=== PATIENT | male | born 1975 | race Caucasian/White ===

== ENCOUNTER → 2017-06-16 09:47 | Outpatient (CLI) | payer OTHER, SELFPAY ==
[2017-06-16 11:15] LABS: Anion Gap 7 (5-15); BUN 18 mg/dL (7-18); BUN/Creat Ratio 15.4 RATIO (10-20); Calcium,Total 8.9 mg/dL (8.5-10.1); Chloride 103 mmol/L (98-107); Cholesterol 193 mg/dL (200); Creatinine, Serum 1.17 mg/dL (0.70-1.30); EST Glomerular Filtration Rate 73 mL/min (>60); Est Glom Filt Rate - Afr Amer 89 mL/min (>60); Glucose 93 mg/dL (74-106); High Density Lipoprotein 43 mg/dL; Magnesium 2.3 mg/dL (1.6-2.6); Potassium 3.7 mmol/L (3.5-5.1); Sodium Level 139 mmol/L (136-145); Thyroid Stim Hormone (TSH) 3.55 uIU/mL (0.358-3.74); Triglycerides 103 mg/dL; Very Low Density Lipoprotein 21 mg/dL (5-40)
== END ==
PROVIDERS: Family Provider Family Medicine; PCP Family Medicine; Visit Provider Family Medicine
DX: I49.1 Atrial premature depolarization (principal)
CPT/HCPCS: 36415; 80048; 80061; 83735; 84443

== ENCOUNTER → 2019-03-12 11:21 | Outpatient (CLI) | payer OTHER, SELFPAY ==
[2019-03-12 12:17] LABS: PSA,Total - Annual Screen 0.47 ng/mL (0.00-4.00); Thyroid Stim Hormone (TSH) 2.26 uIU/mL (0.358-3.74)
[2019-03-15 12:07] LABS: Testosterone, Free 9.66 ng/dL (5.00-21.00)
[2019-03-15 14:26] LABS: Testosterone, % Free 2.41 % (1.50-4.20); Testosterone, Total 401 ng/dL (264-916)
== END ==
PROVIDERS: Family Provider Family Medicine; PCP Family Medicine; Referring Provider Family Medicine; Visit Provider Family Medicine
DX: L65.9 Nonscarring hair loss, unspecified (principal)
CPT/HCPCS: 36415; 84153; 84402; 84403; 84443; G0103

== ENCOUNTER 2020-01-01 20:33 | Emergency (ER) | payer OTHER, SELFPAY ==
[2020-01-01 20:33] VITALS: BP 144/83; PULSE 73; RESP 16; TEMP 36.4; O2SAT 99; BMI 27.6
[2020-01-01] MEDS: Diphth,Pertuss(Acell),Tet Vac 0.5 ML Vial IM (22:13)
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
[2020-01-01 22:46] VITALS: BP 144/83; PULSE 73; RESP 15; O2SAT 97
== END 2020-01-01 23:20 | disposition home or self-care (01) ==
PROVIDERS: Emergency Provider Student in an Organized Health Care Education/Training Program; PCP Family Medicine
DX: S81.811A Laceration without foreign body, right lower leg, initial encounter (principal); S40.011A Contusion of right shoulder, initial encounter; V29.9XXA Motorcycle rider (driver) (passenger) injured in unspecified traffic accident, initial encounter
CPT/HCPCS: 12002; 90715; 96372; 99284

== ENCOUNTER → 2024-09-22 | Outpatient (CLI) | payer OTHER, SELFPAY ==
[2024-09-22 18:08] LABS: ALB/GLOB Ratio 1.7 RATIO (0.9-2.4); AST(SGOT) 17 U/L (<=37); Alanine Aminotransfer ALT/SGPT 18 U/L (<=46); Albumin, Serum 4.2 g/dL (3.5-5.0); Alkaline Phosphatase 36 U/L (40-129); Anion Gap 11 (5-15); BUN 24 mg/dL (4-19); Calcium,Total 8.9 mg/dL (7.6-11.0); Carbon Dioxide 24.7 mmol/L (21.0-32.0); Chloride 102 mmol/L (98-108); Cholesterol 207 mg/dL (<=200); Creatinine, Serum 1.07 mg/dL (0.70-1.20); EST Glomerular Filtration Rate 86 (>60); Globulin 2.5 g/dL (2.2-4.2); Glucose 95 mg/dL (70-99); High Density Lipoprotein 38 mg/dL; Low Density Lipoprotein Calc. 123 mg/dL; Protein, Total 6.7 g/dL (5.9-8.4); Sodium Level 137 mmol/L (133-145); Total Bilirubin 0.18 mg/dL (0.00-1.30); Triglycerides 226 mg/dL; Very Low Density Lipoprotein 45 mg/dL (5-40); cholesterol:hdl ratio screen 5.39
== END | disposition home or self-care (01) ==
LOC: MTLAB 16:11
PROVIDERS: PCP Family Medicine; Referring Provider Family Medicine; Visit Provider Family Medicine
DX: Z00.00 Encounter for general adult medical examination without abnormal findings (principal); Z13.220 Encounter for screening for lipoid disorders
CPT/HCPCS: 36415; 80053; 80061